=== PATIENT | male | born 1995 | race African-American/Black ===

== ENCOUNTER 2018-08-17 08:41 | Emergency (ER) | payer OTHER ==
[~2018-08-17] VITALS: Ht 165.1 cm; Wt 68.0 kg
[2018-08-17 09:17] LABS: PLATELET COUNT 228 K/uL (142-355)
[2018-08-17 09:29] LABS: POTASSIUM 3.8 mmol/L (3.6-5.2)
[2018-08-17 09:42] LABS: PARTIAL THROMBOPLASTIN TIME 26.5 SECONDS (24.5-33.6)
[2018-08-17 11:03] VITALS: BP 96/60; TEMP 99
== END 2018-08-17 11:05 | disposition home or self-care (01) ==
LOC: ED 08:41
PROVIDERS: Hospitalist
DX: R56.9 Unspecified convulsions (principal); J06.9 Acute upper respiratory infection, unspecified
CPT/HCPCS: 80053; 80185; 80307; 80320; 81000; 85027; 85610; 85730; 93005; 96360; 96361; 96365; 99284; J0696

== ENCOUNTER 2018-08-19 02:34 | Emergency (ER) | payer OTHER ==
[~2018-08-19] VITALS: Ht 165.1 cm; Wt 68.0 kg
[2018-08-19 02:48] VITALS: TEMP 97.9
[2018-08-19] MEDS ORDERED: PHENYTOIN EX100 MG PO (02:50)
[2018-08-19 03:06] LABS: PLATELET COUNT 233 K/uL (142-355)
[2018-08-19 03:28] LABS: POTASSIUM 3.2 mmol/L (3.6-5.2)
[2018-08-19 10:36] VITALS: BP 118/74
== END 2018-08-19 10:36 | disposition home or self-care (01) ==
LOC: ED 02:34
PROVIDERS: Student in an Organized Health Care Education/Training Program
DX: R10.33 Periumbilical pain (principal); K52.9 Noninfective gastroenteritis and colitis, unspecified
CPT/HCPCS: 36415; 80053; 80185; 81000; 83735; 84484; 85027; 93005; 96360; 96375; 99284; J1885; J2405; J2550; Q9963